=== PATIENT | female | born 1990 | race Caucasian/White ===

== ENCOUNTER 2022-09-08 18:19 | Emergency (ER) | payer BC ==
[~2022-09-08] VITALS: Ht 157.5 cm; Wt 77.1 kg
[2022-09-08 18:24] VITALS: BP 131/82
[2022-09-08] MEDS ORDERED: BACI-416 TP (18:37)
[2022-09-08 18:44] VITALS: BP 131/82
== END 2022-09-08 18:44 | disposition home or self-care (01) ==
LOC: MED 18:19
DX: S60.416A Abrasion of right little finger, initial encounter (principal); Z79.2 Long term (current) use of antibiotics; W18.40XA Slipping, tripping and stumbling without falling, unspecified, initial encounter; Y93.89 Activity, other specified; Y92.89 Other specified places as the place of occurrence of the external cause; Y99.8 Other external cause status
CPT/HCPCS: 99282